=== PATIENT | male | born 1975 | race Two or more races ===

== ENCOUNTER 2022-01-08 17:00 | Outpatient (CLI) | payer MEDICARE | END 2022-01-08 17:01 | disposition home or self-care (01) | LOC: SLEEPLAB 17:00 | PROVIDERS: ATTEND Internal Medicine | DX: G47.33 Obstructive sleep apnea (adult) (pediatric) (principal); F41.9 Anxiety disorder, unspecified; R06.83 Snoring; G47.00 Insomnia, unspecified; F84.0 Autistic disorder | CPT/HCPCS: 95800 ==

== ENCOUNTER 2022-03-19 19:30 | Outpatient (CLI) | payer MEDICARE | END 2022-03-19 19:31 | disposition home or self-care (01) | LOC: SLEEPLAB 19:30 | PROVIDERS: ATTEND Internal Medicine | DX: G47.33 Obstructive sleep apnea (adult) (pediatric) (principal); R06.83 Snoring; G47.10 Hypersomnia, unspecified; E66.9 Obesity, unspecified; Z68.1 Body mass index [BMI] 19.9 or less, adult | CPT/HCPCS: 95811 ==

== ENCOUNTER 2022-07-30 11:25 | Day surgery (SDC) | payer MEDICARE ==
[2022-07-25 10:01] VITALS: BMI 17.4
[2022-07-30] MEDS ORDERED: Ondansetron PF 4 MG/2 ML Vial ONE (12:45)
[2022-07-30] MEDS ORDERED: Dexamethasone 20 MG/5 ML VIAL ONE (12:45)
[2022-07-30] MEDS ORDERED: PROPOFOL 200 MG/20 ML VIAL ONE (12:45)
[2022-07-30] MEDS ORDERED: Labetalol HCl 100 MG/20 ML VIAL ONE (12:45)
== END 2022-07-30 15:20 | disposition home or self-care (01) ==
LOC: MRI 11:25
PROVIDERS: ATTEND Internal Medicine
DX: R51.9 Headache, unspecified (principal); M54.2 Cervicalgia; E03.9 Hypothyroidism, unspecified; M70.61 Trochanteric bursitis, right hip; F84.0 Autistic disorder; F81.9 Developmental disorder of scholastic skills, unspecified; Z79.890 Hormone replacement therapy; Z79.899 Other long term (current) drug therapy
CPT/HCPCS: 70551; 72040; J1100; J2405; J2704